=== PATIENT | male | born 1965 | race Caucasian/White ===

== ENCOUNTER 2025-04-01 06:24 | Day surgery (SDC) | payer BC, SELFPAY | END 2025-04-01 12:15 | disposition home or self-care (01) | LOC: GI 06:24 | PROVIDERS: ATTENDING PHYSICIAN Internal Medicine Gastroenterology | DX: Z12.11 Encounter for screening for malignant neoplasm of colon (principal); K57.30 Diverticulosis of large intestine without perforation or abscess without bleeding; K63.89 Other specified diseases of intestine; K64.8 Other hemorrhoids; D12.0 Benign neoplasm of cecum; D12.2 Benign neoplasm of ascending colon | CPT/HCPCS: 45380; 88305 ==